=== PATIENT | male | born 1965 | race American Indian/Alaskan Native ===

== ENCOUNTER 2020-07-09 12:44 | Outpatient (CLI) | payer BC ==
--- NOTE | 2020-07-09 14:02 | XRay Report ---
LEFT FOOT 3 VIEWS INDICATION / CLINICAL INFORMATION: LEFT FOOT PAIN M79.672 COMPARISON: None available. FINDINGS: BONES / JOINT(S): No acute fracture or subluxation. Mild DJD first metatarsophalangeal joint. Mild ca lcaneal spurring. Mild DJD at the junction of the mid and hindfoot. SOFT TISSUES: No significant abnormality. ADDITIONAL FINDINGS: None. Signer Name: Donavan Toledo MD Signed: 07/09/2020 1:58 PM Workstation Name: [id number]
== END 2020-07-09 12:45 | disposition home or self-care (01) ==
LOC: SPVIMAG 12:44
PROVIDERS: ATTEND Internal Medicine
DX: M19.072 Primary osteoarthritis, left ankle and foot (principal)